=== PATIENT | male | born 1965 | race Caucasian/White ===

== ENCOUNTER 2022-01-06 11:01 | Outpatient (REF) | payer OTHER, SELFPAY ==
--- NOTE | ~2022-01-06 | US_ITS ---
EXAMINATION: US RETROPERITONEAL LIMITED (RENAL ONLY) CLINICAL INFORMATION: Essential primary hypertension. COMPARISON: None TECHNIQUE: Routine Grayscale imaging of kidneys is performed. Retroperitoneal Doppler imaging was performed as well. FINDINGS: RIGHT KIDNEY: 12.9 x 5.7 x 6.59 cm (SAG x AP x TRV). The kidney is normal in size, contour, and echogenicity. Renal cortical thickness is normal. No calculi or focal parenchymal lesions. No hydronephrosis. There is a nonobstructive echogenic stone in lower pole measuring 0.33 x 0.25 x 0.22 cm. LEFT KIDNEY: 11.8 x 5.14 x 4.99 cm (SAG x AP x TRV). The kidney is normal in size, contour, and echogenicity. Renal cortical thickness is normal. No calculi or focal parenchymal lesions. No hydronephrosis. DOPPLER STUDY: RIGHT KIDNEY: Proximal renal artery velocity measures 77.0 cm/second. Midsegment measures 70.3 cm/second and distal segment measures 70.3 cm/second. Renal aortic ratio measures 0.76 cm. The resistive index measures less than 0.8. LEFT KIDNEY: Proximal left renal artery velocity measures 95.8 cm/second, mid segment measures 154 cm/second and distal segment measures 90.4 cm/second. Renal aortic ratio measures 1.5 cm. Resistive index measures less than 0.80. The mid aorta peak systolic velocity measures 101 cm/second. US/US renal BI IMPRESSION: Nonobstructive echogenic stone lower pole right kidney. The kidneys are unremarkable. There is no evidence of renal artery stenosis in either kidney on Doppler exam.
--- NOTE | ~2022-01-06 | US_ITS ---
EXAMINATION: US RENAL AND DOPPLER CLINICAL INFORMATION: Hypertension. COMPARISON: None TECHNIQUE: Routine grayscale imaging and Doppler ultrasound of both kidneys was performed. FINDINGS: RIGHT KIDNEY: There is normal cortical thickness without any echogenic stones or hydronephrosis. Kidney measures 12.9 x 5.71 x 6.59 seen. There is an echogenic stone in the lower pole measuring 0.33 x 0.25 0.22 cm. No additional echogenic stones or hydronephrosis seen. LEFT KIDNEY: There is normal cortical thickness without any echogenic stones, cysts or hydronephrosis. Left kidney measures 11.8 x 5.14 x 4.99 cm. RIGHT KIDNEY: The proximal renal artery velocity measures 77 cm/s, midsegment measures 70.3 cm/s and distal segment measures 70.3 cm/s. Renal aortic ratio measures 0.76 cm. The resistive index is less than 0.80. LEFT KIDNEY: The proximal left renal artery velocity measures 95.8 cm/s, mid segment measures 154 cm/s, distal segment measures 90.4 cm/s. Renal aortic ratio measures 1.5 and average resistive index is less than 0.80. US/US renal doppler IMPRESSION: Small nonobstructive echogenic stone in the lower pole of right kidney. Otherwise, both kidneys are unremarkable. There is no hydronephrosis. On renal Doppler exam, there is no evidence of renal artery stenosis in either kidney.
== END 2022-01-06 11:02 | disposition home or self-care (01) ==
LOC: HO.HMGCX 11:01
PROVIDERS: Visit Provider Physician Assistant
DX: I10 Essential (primary) hypertension (principal)
CPT/HCPCS: 76775; 93975

== ENCOUNTER → 2023-01-03 15:56 | Outpatient (REF) | payer OTHER, SELFPAY | LOC: HO.SL 15:56 | PROVIDERS: PCP Internal Medicine; Visit Provider Internal Medicine | DX: G47.33 Obstructive sleep apnea (adult) (pediatric) (principal); G47.10 Hypersomnia, unspecified | CPT/HCPCS: 95806 ==

== ENCOUNTER 2025-07-18 13:44 | Day surgery (SDC) | payer BC, SELFPAY ==
--- OUTSIDE RECORDS SUMMARY | 2025-01-15 09:20 | XMS_ITS ---
Author Organization [facility] Address [address] [place] [phone] Care Team Providers Care Prompt Care Rn Name Role Phone Fausto Truong MD Primary Care Provider Samantha Galvan [phone] REASON FOR VISIT Patient presents today for a COLON SCREENING Encounters Encounter Location Date Provider Diagnosis [facility] [address] [place] [phone] 01/15/2025 Samantha Baird Plan Of Treatment Next Appt Details Provider Name:Samantha Baird , 08/04/2025 07:30:00 AM, [address] [place] [address] , [place], [place], [phone], Progress Notes * SAMANTHA JOSEDOB:1964 (60 yo M)Acc No.[id number]:01/15/2025 Progress Notes Patient: SAMANTHA HATCH Es Provider: Pippa Baird MD :1965 A ge:59 Y S ex:Male Date:01/15/2025 Address: [id number] Pcp:Fausto Truong MD Subjective: * Chief Complaints: * 1 . Patient presents today for a COLON SCREENING. * Medical History: Objective: * Vitals: Assessment: Plan: * Treatment: * * The named appointment provid er may or may not be the originator of this progress note, and it is not deemed complete until electronically signed by the appointment provider. Sign off status: Pending * Provider: Pippa Baird MD Date: 0 01/15/2025 Generated for Fredy wilson/Javi/Ravindra on: 1 03:33 PM EDT
--- OUTSIDE RECORDS SUMMARY | 2025-07-04 15:34 | XMS_ITS | Patient Health Record ---
Author Organization [facility] Address [address] [place] [phone] Care Team Providers Care Office Chair Assembler Name Role Phone Fausto Truong MD Primary Care Provider Samantha Galvan Unavailable [phone] Allergies No Known Allergies Reason For Referral No Information Medications Medication SIG (Take, Route, Frequency, Duration) Notes Start Date End Date Status Doxazosin Mesylate 8 MG 1 tablet Orally Once a day Active Carvedilol 25 MG 1 tablet with food Orally Twice a day Active Lisinopril 20 MG 1 tablet Orally Once a day Active hydroCHLOROthiazide 25 MG 1 tablet Orall y Once a day Active Humira Pen Active Suprep Bowel Prep 1 kit as directed Oral ly as directed; Duration: 1 dose 09/18/2014 Not-Taking Multi Vitamin/Minerals Active Osteo Bi-Flex Regular Strength Active Turmeric 450 MG as directed Orally Active Allopurinol 300 MG 1 tablet Orally Once a day Active Sildenafil Citrate 100 MG 1 tablet as ne eded Orally Once a day Active Social History AUDIT-C (Standard) Question Answer Notes Did you have a drink contain ing alcohol in the past year? Yes How often did you have a dri nk containing alcohol in the past year? 2 to 3 times a week (3 points) How many drinks did you have on a typical day when you were drinking in the past year? 1 or 2 drinks (0 point) How often did you have six o r more drinks on one occasion in the past year? Never (0 point) Points 3 Interpretation Negative Section Notes: Nonsmoker; occasional alcoho l Nonsmoker; occasional alcoho l Problems Problem Type SNOMED Code ICD Code Onset Dates Problem Status W/U Status Risk Notes Problem Colon cancer screening (909711642) Colon cancer screening (V76.51) Active confirmed Problem Long-term current use of drug therapy (228804346) Encounter for long-term (current) use of medications (V58.69) Active confirmed Problem Colon cancer screening (501247541) Colon cancer screening (Z12.11) Active confirmed Problem Preprocedural examination (045291464874219) Preprocedural examination (Z01.818) Active confirmed Vital Signs Heart Rate 72 /min 04/23/2025 Temperature 97.8 degrees Fahrenheit 04/23/2025 Blood pressure diastolic 01 mm Hg 04/23/2025 Height 72 in 04/23/2025 Blood pressure systolic 001 mm Hg 04/23/2025 Weight 237 lbs 04/23/2025 BMI 32.14 kg/m2 04/23/2025 Procedures Procedure Date Ordered Date Performed Result Body Sit e COLONOSCOPY 04/23/2025 N/A Encounters Encounter Location Date Provider Diagnosis [facility] [address] [place] [phone] 04/23/2025 Samantha Baird Colon cancer screeni ng Z12.11 and Preprocedural examination Z01.818 [facility] [address] [place] [address] 01/14/2025 Samantha Baird Assessments Encounter Date Diagnosis (ICD Code) Assessment Notes Treatment Notes Treatment Clinical Notes Section Notes 04/23/2025 Colon cancer screening (ICD-10 - Z12.11) Overall, Samantha appears well. Given his age, good clinical appearance, and negative colonoscopy over 10 years ago, I did recommend a follow-up colonoscopy for further screening purposes. We did review the rationale for this in regard to colon cancer prevention. Full consent has been obtained for this, including risks of bleeding and perforation. The procedure will be done with monitored anesthesia care. He was given the below instructions regarding adjustment of his medication for the procedure. Samantha was comfortable with this plan. Thank you again for allowing me to participate in Samantha's care. I shall continue to keep you advised of his progress. 04/23/2025 Preprocedural examination (ICD-10 - Z01.818) Overall, Samantha appears well. Given his age, good clinical appearance, and negative colonoscopy over 10 years ago, I did recommend a follow-up colonoscopy for further screening purposes. We did review the rationale for this in regard to colon cancer prevention. Full consent has been obtained for this, including risks of bleeding and perforation. The procedure will be done with monitored anesthesia care. He was given the below instructions regarding adjustment of his medication for the procedure. Samantha was comfortable with this plan. Thank you again for allowing me to participate in Samantha's care. I shall continue to keep you advised of his progress. Plan Of Treatment Pending Test Test Name Order Date COLONOSCOPY 04/23/2025 Future Test Test Name Order Date COLONOSCOPY 09/18/2014 Next Appt Details Provider Name:Samantha Baird , 08/04/2025 07:30:00 AM, [address] [place] [address] , [place], [place], [phone], Insurance Providers Payer Name Payer Address Payer Phone Subscriber Number Group Number Insured Name Patient Relationship to Insured Coverage Start Date Coverage End Date [facility] [address] [place] [address] [id number] SAMANTHA JOSE Self - patient is the insured 5 Medical (General) History Medical History History ICD Code HTN Denies [place],DM,CVA,Lung disease,renal dise ase Psoriatic arthritis Gout Negative screening colonoscopy in November 2014. Surgical History Surgery Date(Month/Year) Cyst on left ring finger Broken arm surgery 1976
--- NOTE | 2025-07-16 11:28 | HO.ANESPROP2 ---
Documented by User: Kaylan Harding NP 07/16/25 11:30 HPI - Anesthesia Eval Consult details Narrative: 60 yr old male for colonoscopy Psoriatic arthritis: on Amjevita PMFSH Active Problems Active Problems: All Active Problems (Updated 01/09/23 @ 20:11 by Cipriano Ordaz MD) Obstructive sleep apnea (Acute) Erectile dysfunction (Acute) Hypersomnia (Acute) Annual physical exam (Acute) Right renal stone (Acute) Gout (Acute) Annual physical exam (Acute) Erectile dysfunction (Acute) Hypercholesterolemia (Acute) Psoriasis (Acute) Osteoarthritis (Acute) Obesity (BMI 30-39.9) (Acute) Hypertension (Acute) Past Medical History Medical History SHANNON (obstructive sleep apnea) Gout Erectile dysfunction Hypercholesterolemia Psoriasis Osteoarthritis Obesity (BMI 30-39.9) Hypertension Family History Family History (Updated 12/15/22 @ 15:56 by Juana Contreras CMA) Father Prostate cancer Mother CVD (cardiovascular disease) Hypertension Myocardial infarction Maternal Grandfather Myocardial infarction Maternal Grandmother Myocardial infarction Surgical History Surgical History (Updated 07/18/25 @ 14:19 by Sarah Zelaya RN) Hx of colonoscopy History of surgery on arm History of removal of cyst History of wisdom tooth extraction Social History Social History (Updated 07/16/25 @ 14:35 by Juliet Mckenzie RN) Household Members: Spouse Housing: House Are you a primary field care manager to a significant other at home: No Do you presently have visiting nurse or other home services: No Alcohol intake: current Patient Tobacco Use Status: Never used Tobacco e-Cigarette/Vaping Use: Never Used Second Hand Smoke Exposure: No Have you been hit, kicked, punched, or otherwise hurt by someone within the past year? If so, by whom?: No Are you DNR?: No Advance Directives: No Advance Directives Information Provided: Yes service: No Current occupational status: employed Cognitive needs: No Hearing needs: No Vision needs: No Meds Allergies Allergy/AdvReac Type Severity Reaction Status Date / Time lisinopril Allergy Intermediate Cough Verified 07/18/25 14:19 losartan Allergy Unknown Unknown Verified 07/18/25 14:19 sulfasalazine (Azulfidine) Allergy Unknown Unknown Verified 07/18/25 14:19 amlodipine AdvReac Intermediate Erectile Verified 07/18/25 14:19 dysfunction Home Medications ?Medication ?Instructions ?Recorded ?Confirmed ?Last Taken ?Type adalimumab 40 mg/0.4 mL 40 mg subcut Q2W 08/02/21 07/18/25 Unknown History subcutaneous syringe kit (Humira(CF)) ibuprofen 200 mg tablet (Advil) 400 mg PO Q8H 08/02/21 07/18/25 06/27/25 History multivitamin (One-A-Day Essential 1 tab PO DAILY 08/02/21 07/18/25 Unknown History tablet) allopurinol 300 mg tablet 300 mg PO DAILY 07/16/25 07/18/25 Unknown History carvedilol 25 mg tablet 25 mg PO BID 07/16/25 07/18/25 Unknown History hydrochlorothiazide 25 mg tablet 25 mg PO DAILY 07/16/25 07/18/25 Unknown History sildenafil 100 mg tablet 100 mg PO DAILY 07/16/25 07/18/25 Unknown History tadalafil 5 mg tablet 5 mg PO DAILY 07/16/25 07/18/25 Unknown History Documented by User: Bianca Rizo MD 07/18/25 14:49 [facility] Past Medical History Medical History SHANNON (obstructive sleep apnea) Gout Erectile dysfunction Hypercholesterolemia Psoriasis Osteoarthritis Obesity (BMI 30-39.9) Hypertension Family History Family History (Updated 12/15/22 @ 15:56 by Juana Contreras CMA) Father Prostate cancer Mother CVD (cardiovascular disease) Hypertension Myocardial infarction Maternal Grandfather Myocardial infarction Maternal Grandmother Myocardial infarction Family history of problems with anesthesia: No Surgical History Surgical History (Updated 07/18/25 @ 14:19 by Sarah Zelaya RN) Hx of colonoscopy History of surgery on arm History of removal of cyst History of wisdom tooth extraction History of Problems with Anesthesia: No Social History Social History (Updated 07/16/25 @ 14:35 by Juliet Mckenzie RN) Household Members: Spouse Housing: House Are you a primary field care manager to a significant other at home: No Do you presently have visiting nurse or other home services: No Alcohol intake: current Patient Tobacco Use Status: Never used Tobacco e-Cigarette/Vaping Use: Never Used Second Hand Smoke Exposure: No Have you been hit, kicked, punched, or otherwise hurt by someone within the past year? If so, by whom?: No Are you DNR?: No Advance Directives: No Advance Directives Information Provided: Yes service: No Current occupational status: employed Cognitive needs: No Hearing needs: No Vision needs: No Meds Allergies Allergy/AdvReac Type Severity Reaction Status Date / Time lisinopril Allergy Intermediate Cough Verified 07/18/25 14:19 losartan Allergy Unknown Unknown Verified 07/18/25 14:19 sulfasalazine (Azulfidine) Allergy Unknown Unknown Verified 07/18/25 14:19 amlodipine AdvReac Intermediate Erectile Verified 07/18/25 14:19 dysfunction Home Medications ?Medication ?Instructions ?Recorded ?Confirmed ?Last Taken ?Type adalimumab 40 mg/0.4 mL 40 mg subcut Q2W 08/02/21 07/18/25 Unknown History subcutaneous syringe kit (Humira(CF)) ibuprofen 200 mg tablet (Advil) 400 mg PO Q8H 08/02/21 07/18/25 06/27/25 History multivitamin (One-A-Day Essential 1 tab PO DAILY 08/02/21 07/18/25 Unknown History tablet) allopurinol 300 mg tablet 300 mg PO DAILY 07/16/25 07/18/25 Unknown History carvedilol 25 mg tablet 25 mg PO BID 07/16/25 07/18/25 Unknown History hydrochlorothiazide 25 mg tablet 25 mg PO DAILY 07/16/25 07/18/25 Unknown History sildenafil 100 mg tablet 100 mg PO DAILY 07/16/25 07/18/25 Unknown History tadalafil 5 mg tablet 5 mg PO DAILY 07/16/25 07/18/25 Unknown History Exam Airway Mallampati Class: II TM Dist: >3cm Neck ROM: Full Heart: rrr Lungs: cta Assessment and Plan Assessment Anesthesia Assessment: Anesthesia Plan Discussed and Chart Reviewed Final Anesthetic Review Family History of Problems with Anesthesia: No History of Problems with Anesthesia: No NPO: Yes ASA Class: II Final Preanesthetic Review: No Changes in Pt Med Stat, Meds/Allgs Chart Reviewed and Consent Obtained/Reviewed Patient Risk: Low Anesthetic Plan Anesthetic Plan: MAC: Disposition: Standard PACU
[2025-07-16 14:33] VITALS: BMI 32.1
[2025-07-18] MEDS: Lactated Ringers 1,000 ML 100 ML IVCONT (14:14)
[2025-07-18 14:15] VITALS: BP 137/85; PULSE 78; RESP 18; TEMP 36.8; O2SAT 96
[2025-07-18 14:16] VITALS: BMI 31.2
[2025-07-18 16:45] VITALS: BP 122/68; PULSE 67; RESP 16; TEMP 37.7; O2SAT 95
--- NOTE | 2025-07-18 16:51 | P.BOP_ITS ---
Brief Operative Note Date of Service: 07/18/25 Pre-op diagnosis: Screening Post-op diagnosis: other (Polyp) Procedure: Colonoscopy to the cecum and TI with bx/removal of polyp Surgeon: Ganga Baird MD Anesthesia: MAC Was an Fiscal Economist used for this Procedure?: No Estimated blood loss (mL): 2.0 Pathology: other (A. Polyp at 50cm) Condition: stable Disposition: PACU
[2025-07-18 17:00] VITALS: BP 119/74; PULSE 64; RESP 18; TEMP 36.6; O2SAT 96
--- NOTE | 2025-07-19 00:49 | OP_ITS ---
DATE OF SERVICE: 07/18/2025 SURGEON: Ganga Baird MD INDICATIONS: The patient presents for evaluation of colorectal cancer screening. Full consent has been obtained from him for this, including risks of bleeding and perforation. PREOPERATIVE DIAGNOSIS: Colorectal cancer screening. POSTOPERATIVE DIAGNOSIS: PROCEDURE PERFORMED: Colonoscopy to the cecum and terminal ileum with biopsy and removal of polyp. ESTIMATED BLOOD LOSS: COMPLICATIONS: ANESTHESIA: Medication used, monitored anesthesia care. ASSISTANTS: SPECIMENS: POSTOPERATIVE DIAGNOSES: Colorectal cancer screening, small colon polyp, mild sigmoid diverticulosis, small internal hemorrhoids. DESCRIPTION OF PROCEDURE: The patient was placed in the left lateral decubitus position. The digital rectal exam revealed no abnormalities. The Olympus video pediatric colonoscope was entered into the rectum and advanced easily to the cecum. Once in the cecum, I did identify normal-appearing cecal pouch with appendiceal orifice and a normal-appearing ileocecal valve. The terminal ileum was cannulated and appeared normal. The scope withdrawn back in the colon. The entire cecum and ileocecal valve appeared normal. The scope was slowly withdrawn assessing all mucosal surfaces carefully. Preparation was excellent. At 50 cm was a flat, approximately 3 or 4 mm polyp, which was biopsied and completely removed with the cold biopsy forceps. I did not visualize any other polyps, colitis, nor angiodysplasia. There were occasional diverticula in the sigmoid colon. In the rectum, scope was retroflexed visualizing small internal hemorrhoids, but no other pathology. The rectal mucosa appeared normal. The scope was straightened and withdrawn from the patient. He tolerated the procedure well and was returned to the recovery area in stable condition. IMPRESSION: 1. Small colon polyp, status post biopsy and removal. 2. Mild sigmoid diverticulosis. 3. Internal hemorrhoids. PLAN: The results of the pathology will be checked. If this is a tubular adenoma, I would recommend a followup coloscopy in 5 years. If it is just hyperplastic, I would recommend a followup colonoscopy in 10 years. He will otherwise see me as needed. This has been discussed with his . MD ROGELIO Malone/ARACELIS / [phone] HARRY
== END 2025-07-18 17:08 | disposition home or self-care (01) ==
PROVIDERS: PCP Internal Medicine; Visit Provider Internal Medicine
PROC: 0DJD8ZZ Inspection of Lower Intestinal Tract, Via Natural or Artificial Opening Endoscopic (ICD-10-PCS; CPT 45378; principal; 2025-07-18 14:40)
DX: Z12.11 Encounter for screening for malignant neoplasm of colon (principal); K64.8 Other hemorrhoids; K57.30 Diverticulosis of large intestine without perforation or abscess without bleeding; D12.4 Benign neoplasm of descending colon
CPT/HCPCS: 45380; 88305; J2003; J2704